=== PATIENT | male | born 1980 | race Caucasian/White ===

== ENCOUNTER 2019-03-07 03:16 | Emergency (ER) | payer BC, OTHER ==
[2019-03-07] MEDS ORDERED: FLEXERIL PO ONE (05:26)
[2019-03-07] MEDS ORDERED: IBUPROFEN PO ONE ×2 (05:26→05:27)
[2019-03-07] MEDS ORDERED: FLEXERIL ONE (05:27)
[2019-03-07 05:33] LABS: Bilirubin,Urine NEG (Negative); Blood,Urine NEG (Negative); Color,Urine Yellow (Yellow); Protein,Urine <15 mg/dL mg/dL (Negative); Urobilinogen,Urine < 2.0 mg/dL (<2.0); WBC,Urine < 1.0 /HPF (0.0-6.0)
[2019-03-07] MEDS ORDERED: HumuLIN R ONE (06:08)
--- NOTE | 2019-03-07 08:18 | Emergency Department Report ---
HPI - General Chief Complaint: Back Pain/Injury Time Seen by Provider: 03/07/19 05:53 - HPI HPI: 38-year-old male presents to the emergency department with a complaint of right lateral, mid to lower back pain that has been going on since about 3 AM. Patient says that he was lifting heavy boxes throughout most of yesterday and may have pulled out his back. He otherwise denies any past medical history. He did not take anything for his symptoms prior to arrival. No problems with bowel or bladder, numbness or paresthesias, or any neurological deficits. The pain worsens with movement and with ambulation. He does not have a primary care physician. ED Past Medical Hx - Past Medical History Previous Medical History?: No - Surgical History Past Surgical History?: No - Social History Smoking Status: Never Smoker Substance Use Type: None - Medications Home Medications: Home Medications Medication Instructions Recorded Confirmed Last Taken Type HYDROcodone/APAP 10-325 [[place] 1 each PO Q6HR PRN #30 tablet 08/20/14 Unknown Rx 10/325] Ibuprofen [Motrin] 600 mg PO Q8H PRN #60 tablet 08/20/14 Unknown Rx Cyclobenzaprine [Flexeril] 10 mg PO TID PRN #12 tablet 03/07/19 Unknown Rx Ibuprofen 800 mg PO Q8H PRN #20 tablet 03/07/19 Unknown Rx ED Review of Systems ROS: Stated complaint: LOW BACK PAIN Other details as noted in HPI Comment: All other systems reviewed and negative Constitutional: denies: chills, fever Eyes: denies: eye pain, vision change ENT: denies: ear pain, throat pain Respiratory: denies: cough, shortness of breath Cardiovascular: denies: chest pain, palpitations Gastrointestinal: denies: abdominal pain, vomiting Genitourinary: denies: dysuria, frequency Musculoskeletal: back pain. denies: arthralgia Skin: denies: rash, lesions Neurological: denies: headache, weakness Physical Exam - Physical Exam Vital Signs: Vital Signs 03/07/19 03:17 Temperature 97.8 F Physical Exam: GENERAL: The patient is well-developed well-nourished. HEENT: Normocephalic. Atraumatic. Patient has moist mucous membranes. EYES: Extraocular motions are intact. NECK: Supple. Trachea is midline. CHEST/LUNGS: Clear to auscultation. There is no respiratory distress noted. HEART/CARDIOVASCULAR: Regular. There is no tachycardia. There is no obvious murmur. ABDOMEN: There is no abdominal distention. SKIN: Skin is warm and dry. NEURO: The patient is awake, alert, and oriented. The patient is cooperative. The patient has no focal neurologic deficits. The patient has normal speech. MUSCULOSKELETAL: There is no tenderness or deformity. There is no limitation range of motion. There is no evidence of acute injury. Muscle strength 5 out of 5 upper and lower extremities bilaterally. BACK: No midline thoracic or lumbar tenderness to palpation, step-off or deformity. There is some reproducible lateral right lower thoracic and lumbar tenderness to palpation. ED Course Vital Signs 03/07/19 03:17 Temperature 97.8 F ED Medical Decision Making - Medical Decision Making Patient presents to the emergency department with some right-sided mid to lower back pain. There are no problems with bowel or bladder, numbness or paresthesias or any neurological deficits. He has full muscle strength to upper and lower extremities. Patient says he was lifting heavy objects yesterday which may be the inciting event. He was given some muscle relaxer and NSAIDs prior to my shift starting and upon reevaluation of this medication he is feeling improved. He was seen ambulatory in the emergency department. He appears low suspicion for any of the emergent conditions such as cauda equina, epidural abscess or cord compression syndrome. He will be given referrals for primary care and orthopedists. He will return to the ER with any worsening of his symptoms or any acute distress. - Differential Diagnosis muscle spasm, strain/strain, contusion Critical Care Time: No Critical care attestation.: If time is entered above; I have spent that time in minutes in the direct care of this critically ill patient, excluding procedure time. ED Disposition Clinical Impression: Back pain Qualifiers: Back pain location: back pain in unspecified location Chronicity: acute Back pain laterality: right Qualified Code(s): M54.9 - Dorsalgia, unspecified Disposition: DC-01 TO HOME OR SELFCARE Is pt being admited?: No Condition: Stable Instructions: Back Pain (ED) Additional Instructions: Please follow up with a primary care physician. I am also giving him a referral for a local orthopedist, Dr. Mitchell, to follow up regarding your back pains. Return to the emergency Department with any worsening of her symptoms, development of numbness, problems using the bathroom, or any acute distress. You have been prescribed a medication that can be sedating. Therefore, this medication cannot be taken prior to driving, working, being responsible for children, and cannot be mixed with alcohol of any quantity. Prescriptions: Cyclobenzaprine [Flexeril] 10 mg PO TID PRN #12 tablet PRN Reason: Muscle Spasm Ibuprofen 800 mg PO Q8H PRN #20 tablet PRN Reason: Pain , Severe (7-10) Referrals: NICHOLAS MITCHELL MD [Staff Physician] - 3-5 Days [facility] [Outside] - 3-5 Days Forms: Work/School Release Form(ED) Time of Disposition: 08:18
[2019-03-07 09:11] VITALS: BP 100/59
== END 2019-03-07 08:36 | disposition home or self-care (01) ==
LOC: ED 03:16
DX: M54.5 Low back pain (principal)
CPT/HCPCS: 81001; 99283; J1815

== ENCOUNTER 2019-10-20 04:35 | Emergency (ER) | payer SELFPAY ==
[2019-10-20] MEDS ORDERED: SODIUM CHLORIDE 0.9% 1000 ML 1,000 ML IV ONE ×2 (04:48→05:34)
[2019-10-20] MEDS ORDERED: MORPHINE 4 MG/1 ML INJ IV ONE (04:49)
[2019-10-20] MEDS ORDERED: ONDANSETRON 4 MG/2 ML INJ IV ONE (04:49)
[2019-10-20 05:15] LABS: Basophils % (Auto) 0.5 % (0.0-1.8); Eosinophils # (Auto) 0.1 K/mm3 (0.0-0.4); Eosinophils % (Auto) 2.4 % (0.0-4.3); Hematocrit 44.3 % (35.5-45.6); Hemoglobin 15.1 gm/dl (11.8-15.2); Lymphocytes # (Auto) 1.7 K/mm3 (1.2-5.4); Lymphocytes % (Auto) 34.4 % (13.4-35.0); Mean Corpuscular HGB Conc 34 % (32-34); Mean Corpuscular Volume 94 fl (84-94); Monocytes # (Auto) 0.3 K/mm3 (0.0-0.8); Monocytes % (Auto) 7.2 % (0.0-7.3); Platelet Count 224 K/mm3 (140-440); Red Cell Distribution Width 13.1 % (13.2-15.2)
[2019-10-20 05:23] LABS: BUN/Creatinine Ratio 15; Blood Urea Nitrogen 12 mg/dL (9-20); Calcium 8.9 mg/dL (8.4-10.2); Hemolysis Index 6
[2019-10-20 05:27] LABS: Alanine Aminotransferase 15 units/L (7-56); Albumin 4.9 g/dL (3.9-5)
[2019-10-20 05:51] LABS: Bilirubin,Direct < 0.2 mg/dL (0-0.2)
--- NOTE | 2019-10-20 06:13 | Emergency Department Report ---
ED General Adult HPI - General Chief complaint: Abdominal Pain Stated complaint: GENERAL ILLNESS Time Seen by Provider: 10/20/19 06:12 Source: patient, EMS Mode of arrival: Ambulatory Limitations: No Limitations - History of Present Illness Initial comments: 's is a 38-year-old man who was initially given medication that provided medical screening before I came. I am told he was found in his vehicle on [address] "thrashing". When he arrived, he was still agitated and made some mention of right upper quadrant pain. He was given morphine. At the time of my encounter, the patient is coherent. He tells me he remembers the medics responding and sticking his finger. He is not complaining of any pain. He did not even mention abdominal pain. He does not know why he was acting strangely. He denies taking any pills or intravenous medication. He states he has no mental health history. -: unknown Location: abdomen Severity scale (0 -10): 7 Consistency: now resolved Associated Symptoms: denies other symptoms Treatments Prior to Arrival: other (as above) - Related Data Previous Rx's Medication Instructions Recorded Last Taken Type HYDROcodone/APAP 10-325 [[place] 1 each PO Q6HR PRN #30 tablet 08/20/14 Unknown Rx 10/325] Ibuprofen [Motrin] 600 mg PO Q8H PRN #60 tablet 08/20/14 Unknown Rx Cyclobenzaprine [Flexeril] 10 mg PO TID PRN #12 tablet 03/07/19 Unknown Rx Ibuprofen [Ibuprofen 800] 800 mg PO Q8H PRN #20 tablet 03/07/19 Unknown Rx Allergies Allergy/AdvReac Type Severity Reaction Status Date / Time No Known Allergies Allergy Verified 03/07/19 03:21 ED Review of Systems ROS: Stated complaint: GENERAL ILLNESS Other details as noted in HPI Constitutional: denies: chills, fever Eyes: denies: eye pain, eye discharge, vision change ENT: denies: ear pain, throat pain Respiratory: denies: cough, shortness of breath, wheezing Cardiovascular: denies: chest pain, palpitations Endocrine: no symptoms reported Gastrointestinal: abdominal pain (as above). denies: nausea, diarrhea Genitourinary: denies: urgency, dysuria Musculoskeletal: denies: back pain, joint swelling, arthralgia Skin: denies: rash, lesions Neurological: other (mental status issue). denies: headache, weakness, paresthesias Psychiatric: denies: anxiety, depression Hematological/Lymphatic: denies: easy bleeding, easy bruising ED Past Medical Hx - Past Medical History Previous Medical History?: No - Surgical History Past Surgical History?: Yes Additional Surgical History: L ankle sx - Social History Smoking Status: Current Every Day Smoker - Medications Home Medications: Home Medications Medication Instructions Recorded Confirmed Last Taken Type HYDROcodone/APAP 10-325 [[place] 1 each PO Q6HR PRN #30 tablet 08/20/14 Unknown Rx 10/325] Ibuprofen [Motrin] 600 mg PO Q8H PRN #60 tablet 08/20/14 Unknown Rx Cyclobenzaprine [Flexeril] 10 mg PO TID PRN #12 tablet 03/07/19 Unknown Rx Ibuprofen [Ibuprofen 800] 800 mg PO Q8H PRN #20 tablet 03/07/19 Unknown Rx ED Physical Exam - General Limitations: No Limitations General appearance: alert, in no apparent distress - Head Head exam: Present: atraumatic, normocephalic - Eye Eye exam: Present: normal appearance, PERRL, EOMI. Absent: scleral icterus - ENT ENT exam: Present: mucous membranes moist - Neck Neck exam: Present: normal inspection. Absent: tenderness, meningismus - Respiratory Respiratory exam: Present: normal lung sounds bilaterally. Absent: respiratory distress - Cardiovascular Cardiovascular Exam: Present: regular rate, normal rhythm. Absent: systolic murmur, diastolic murmur, rubs, gallop - GI/Abdominal GI/Abdominal exam: Present: soft, normal bowel sounds. Absent: distended, tenderness, guarding, rebound, rigid, organomegaly, mass, bruit, pulsatile mass, hernia - Rectal Rectal exam: Present: deferred - Extremities Exam Extremities exam: Present: normal inspection - Back Exam Back exam: Present: normal inspection - Neurological Exam Neurological exam: Present: alert, oriented X3, CN II-XII intact. Absent: motor sensory deficit - Psychiatric Psychiatric exam: Present: normal affect, normal mood - Skin Skin exam: Present: warm, dry, intact, normal color. Absent: rash ED Course Vital Signs 10/20/19 10/20/19 10/20/19 04:56 04:59 07:09 Temperature 97.1 F L 97.6 F Pulse Rate 80 Respiratory 18 16 Rate Blood Pressure 131/59 Blood Pressure 105/62 [Left] O2 Sat by Pulse 100 100 Oximetry - Reevaluation(s) Reevaluation #1: Patient is able to walk around without difficulty. He initially was not forth right in admitting that he took methamphetamine perhaps ecstasy. He did finally admitted to the nurse. He is totally coherent and without complaint. He is appropriate for outpatient disposition. 10/20/19 07:44 ED Medical Decision Making - Lab Data Result diagrams: 10/20/19 04:57 10/20/19 04:57 Laboratory Results - last 24 hr 10/20/19 10/20/19 10/20/19 04:57 04:57 04:57 WBC 4.9 RBC 4.70 Hgb 15.1 Hct 44.3 MCV 94 MCH 32 MCHC 34 RDW 13.1 L Plt Count 224 Lymph % (Auto) 34.4 [place] % (Auto) 7.2 Eos % (Auto) 2.4 Baso % (Auto) 0.5 Lymph # 1.7 [place] # 0.3 Eos # 0.1 Baso # 0.0 Seg Neutrophils % 55.5 Seg Neutrophils # 2.7 Sodium 141 Potassium 4.1 Chloride 106.4 Carbon Dioxide 25 Anion Gap 14 BUN 12 Creatinine 0.8 Estimated GFR > 60 BUN/Creatinine Ratio 15 Glucose 90 Calcium 8.9 Total Bilirubin 0.30 Direct Bilirubin < 0.2 Indirect Bilirubin 0.1 AST 15 ALT 15 Alkaline Phosphatase 76 Total Protein 7.0 Albumin 4.9 Albumin/Globulin Ratio 2.3 Lipase 25 Critical care attestation.: If time is entered above; I have spent that time in minutes in the direct care of this critically ill patient, excluding procedure time. ED Disposition Clinical Impression: Methamphetamine abuse Disposition: DC-01 TO HOME OR SELFCARE Is pt being admited?: No Does the pt Need Aspirin: No Condition: Stable Instructions: Methamphetamine Abuse (ED) Additional Instructions: Return to the emergency department any acute change or problem. Obviously avoid substance abuse. Follow-up with primary care physician. Referrals: PRIMARY MD ELIZABETH [Primary Care Provider] - 3-5 Days [facility] [Provider Group] - 3-5 Days Time of Disposition: 07:46
[2019-10-20 07:54] VITALS: BP 142/75
[2019-10-20 08:48] LABS: Bilirubin,Urine NEG (Negative); Blood,Urine NEG (Negative); Color,Urine Straw (Yellow); Mucus,Urine FEW /HPF; Protein,Urine <15 mg/dL mg/dL (Negative); Urobilinogen,Urine < 2.0 mg/dL (<2.0)
[2019-10-20 09:08] LABS: Benzodiazepines Screen,Urine PRESUMPTIVE NEGATIVE; Cannabinoid Screen,Urine PRESUMPTIVE NEGATIVE; Cocaine Screen,Urine PRESUMPTIVE NEGATIVE; Methadone Screen,Urine PRESUMPTIVE NEGATIVE; Opiate Screen,Urine PRESUMPTIVE NEGATIVE
[2019-10-20 09:30] LABS: Amphetamine Screen,Urine PRESUMPTIVE POSITIVE
== END 2019-10-20 08:11 | disposition home or self-care (01) ==
LOC: ED 04:35
DX: R10.11 Right upper quadrant pain (principal); F15.10 Other stimulant abuse, uncomplicated; F17.200 Nicotine dependence, unspecified, uncomplicated
CPT/HCPCS: 36415; 80048; 80076; 80307; 81001; 83690; 85025; 96374; 96375; 99284; J2270; J2405; J7030; 80320; G0480